=== PATIENT | female | born 1940 | race Caucasian/White ===

== ENCOUNTER 2016-10-01 11:39 | Emergency (ER) | payer MEDICARE, BC ==
[2016-10-01 12:18] VITALS: TEMP 97.7; BMI 15.3
--- NOTE | 2016-10-01 15:29 | DIRPT ---
CLINICAL DATA: Cough and congestion for 1 week EXAM: CHEST 2 VIEW COMPARISON: June 29, 2016 FINDINGS: Previous infiltrate in the left base has cleared. Currently there is no edema or consolidation. There is a small calcified granuloma in the left upper lobe. There is mild scarring in the bases. The heart size is normal. Pulmonary vascularity is normal. Atherosclerotic calcification is noted in the aorta. No adenopathy. There is evidence of an old fracture of the right fourth rib with remodeling. Bones are somewhat osteoporotic. IMPRESSION: No edema or consolidation. Mild bibasilar scarring. Small calcified granuloma left upper lobe. Cardiac silhouette within normal limits. Electronically Signed By: Conor William III, M.D. On: 10/01/2016 15:26
--- NOTE | 2016-10-01 15:34 | EDPRACDOC ---
- General Information Chief Complaint: Dyspnea/Resp distress Stated Complaint: COUGH/JANAE X 1 WEEK Time Seen by Provider: 10/01/16 15:23 Information Source: Patient Mode Of Arrival: Car Home Medications: Home Medications CYANOCOBALAMIN (Vitamin B-12) [Vitamin B-12] 1,000 mcg IM .MONTHLY 12/20/14 Carbidopa/Levodopa [Carbidopa-Levodopa 25-100 Tab] 1 tab PO TID 12/20/14 Ergocalciferol (Vitamin D2) [Vitamin D] 50,000 units PO Mo@0900 12/20/14 Desvenlafaxine [Desvenlafaxine ER] 50 mg PO QAM 06/24/16 Zolpidem Tartrate [Ambien] 5 mg PO QHS 06/24/16 Guaifenesin [Mucinex] 600 mg PO BID 10/01/16 Levofloxacin [Levaquin] 500 mg PO DAILY #7 tab 10/01/16 Allergies/Adverse Reactions: Allergies Allergy/AdvReac Type Severity Reaction Status Date / Time codeine [Codeine] Allergy Nausea/Vomi Verified 10/01/16 12:14 ting - History of Present Illness Onset: FEW DAYS HPI: PT'S CAREGIVER SAID THAT PT HAS BEEN COUGHING. SHE TOOK PT TO DR. SOTO WHO SENT PT HERE. 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 Shortness of Breath: Moderate Relevant History: Reports: None Cough: Reports: Non-productive Rhinorrhea: Reports: None Ear Symptoms: Reports: None SOB Worsens with: Reports: Exertion SOB Improves with: Reports: Nothing Associated Signs and symptoms: Reports: Cough ED Past Medical History - Patient Medical History Neurological History: Reports: Migraine, Parkinson's, Other (cerebellar ataxia) GI/ History: Reports: Diverticulosis (colon polyps. Dr. Dover.) Musculoskeletal History: Reports: Arthritis (and osteoporosis. L humerus fracture 2007.), Osteoarthritis (UNABLE TO WALK, MINIMAL USE OF LEGS.) Psychological History: Reports: Depression. Denies: Substance Use Disorder Surgical History: Reports: Appendectomy, Cholecystectomy (2010), Hysterectomy, Tonsillectomy/Adnoidectomy - Family Medical History Reports: Stroke (Mother), Cardiac Disorders (Father, Mother), Respiratory Disorders - Social Medical History Smoking Status: Never smoker Social History: Denies: Substance Use Disorder ETOH: None Substance Abuse: None Lives In: Home EDM Review of Systems - Review of Systems ROS Negative Except as Marked: Yes All systems reviewed and were negative except as marked Respiratory: Cough - Physical Exam Constitutional: Alert (Awake), No apparent distress Oriented to: Time, Person, Place Last recorded Vital Signs: Last Vital Signs Temp 97.7 F 10/01/16 12:14 Pulse 106 10/01/16 12:14 Resp 18 10/01/16 12:14 BP 99/64 10/01/16 12:14 Pulse Ox 94 10/01/16 12:14 Oxygen Pulse Oxygen Saturation 94 O2 Device Room Air Oxygen Flow Rate Fraction of Inspired Oxygen ( FIO2) - HEENT Head: Normal ( normocephalic) Eye Exam: Normal (PERRL, EOMI, Sclera white) Oropharynx: Normal (Pharynx:Moist without exudate,Gums-no swelling) ENT EAC: Normal TMJ: Normal Nose: No Symptoms Reported (septum midline) Neck: Normal (FROM, trachea at midline) - Respiratory/Cardiovascular Respiratory: Normal - CTA (BBS clear to auscultation without adventitious sounds ) Cardiovascular: Normal (RRR without murmur, gallop or rub) - GI Auscultation: Normal (NABS) Palpation: Normal (Soft,No rebound or guarding, non distended) Tenderness: Non tender Lisa's Sign: Negative - Musculoskeletal Back: Normal (Non-Tender) Extremities: Normal (Normal tone, Pulses 2+ No cyanosis or edema, FROM) - Integumentary Skin: Normal, Warm, Dry Lymphatics: Normal (no adenopathy) - Neurologic Memory Impaired: Unable to Test Motor Function: Unable to Test Cranial Nerve: Unable to Test Cerebellar: Tremor ED SOB MDM - Results Result Diagrams: 10/01/16 15:37 10/01/16 15:37 - EKG EKG #1 EKG Time: 16:30 -: Yes EKG interpreted by me Rate: bpm: 108 [place]: Normal Rhythm: ST Block: None Hypertrophy: None ST: Normal - Diagnostic Imaging Chest Image interpreted by: Radiologist Diagnostic Imaging Comments: No edema or consolidation. Mild bibasilar scarring. Small calcified granuloma left upper lobe. Cardiac silhouette within normal limits. Decision Time to Discharge: 18:27 - Departure Yes I personally saw and evaluated the patient. Disposition: Home Condition: Fair Final Diagnosis: Acute bronchitis, UTI (urinary tract infection) Instructions: Urinary Tract Infection in Women (ED), Acute Bronchitis (ED) Education/Counseling Given To: Patient, Family Member Education/Counseling Given Regarding: Diagnosis, Treatment, Follow Up Prescriptions: Levofloxacin [Levaquin] 500 mg PO DAILY #7 tab
[2016-10-01 15:53] LABS: AUTOMATED BASOPHIL 0.4 % (0-2); AUTOMATED EOSINOPHIL 4.5 % (0-5); AUTOMATED LYMPH 31.1 % (17-44); AUTOMATED MONOCYTE 8.3 % (3-10); AUTOMATED NEUTROPHIL 55.7 % (45-76); MPV 7.2 fL (7.4-10.4)
[2016-10-01 16:04] LABS: PARTIAL THROMB. TIME 26.8 SEC (22-35)
[2016-10-01 16:08] LABS: BLOOD UREA NITROGEN 20 MG/DL (7-17); CALCIUM 9.9 MG/DL (8.4-10.2); CALCULATED OSMOLALITY 278 MOs/Kg (270-290); CHLORIDE 101 mEq/L (98-107); GLUCOSE 93 MG/DL (70-99); SODIUM LEVEL 143 mEq/L (137-146); TOTAL PROTEIN 8.2 G/DL (6.3-8.2)
[2016-10-01] MEDS ORDERED: NS 1,000 ML IV ONE (16:16)
[2016-10-01 16:33] LABS: ABG Draw Site Right Radial; ALLEN'S TEST PASS; BEb 5.3 (+/- 2); TCO2 31.9 MMOL/L (23-27)
[2016-10-01 18:21] LABS: LEUKOCYTES/URINE 2+ (NEGATIVE); RBC/URINE 30-40 (0-5); URINE OCCULT BLOOD 2+ (NEG/TRACE); WBC/URINE TNTC (0-5)
[2016-10-01 18:22] LABS: NITRITE/URINE POS (NEGATIVE)
[2016-10-01] MEDS ORDERED: LEVOFLOXACIN 500 MG TAB PO ONE (18:26)
[2016-10-01 18:54] VITALS: BP 154/82; PULSE 102
== END 2016-10-01 18:53 | disposition home or self-care (01) ==
LOC: ED 11:39
DX: J20.9 Acute bronchitis, unspecified (principal); N39.0 Urinary tract infection, site not specified; G20 Parkinson's disease; Z79.899 Other long term (current) drug therapy
CPT/HCPCS: 36415; 36600; 71020; 80053; 81001; 82803; 84484; 85025; 85610; 85730; 87040; 87077; 87086; 87186; 93005; 96360; 99283; A9270; J3490